=== PATIENT | female | born 1985 | race Caucasian/White ===

== ENCOUNTER 2017-10-05 01:09 | Emergency (ER) | payer SELFPAY ==
[~2017-10-05] VITALS: Ht 152.4 cm; Wt 85.0 kg
[2017-10-05] MEDS: ONDANSETRON HCL 4MG/2ML VIAL IV STA (06:17)
[2017-10-05] MEDS ORDERED: MORPHINE SULFATE 4 MG/ML CPJ (NOT FOR IM USE) IV STA (06:17)
[2017-10-05] MEDS: SODIUM CHLORIDE 0.9% 1,000 ML IV ONE (06:25)
[2017-10-05 06:37] LABS: EOSINOPHILS % 0.9 % (0.0-5.0); HEMATOCRIT. 39.6 % (36.0-48.0); HEMOGLOBIN. 13.2 g/dL (12.0-16.0); LYMPHOCYTES % 17.4 % (20.0-50.0); MEAN CORPUSCULAR HEMOGLOBIN 25.7 pg (28.0-32.0); MEAN CORPUSCULAR VOLUME 77.3 fL (81.0-99.0); MEAN PLATELET VOLUME 8.4 fl (7.4-10.4); MONOCYTES % 4.8 % (2.0-8.0); NEUTROPHILS % 75.9 % (40.0-76.0); PLATELET 374 x1000/uL (130-400); RED BLOOD CELL COUNT 5.13 mill/uL (4.2-5.4)
[2017-10-05 06:49] LABS: PROTHROMBIN TIME 10.8 sec (9.4-11.6)
[2017-10-05 07:09] LABS: CARBON DIOXIDE 29 mEq/L (21-32)
[2017-10-05 07:21] LABS: CHLORIDE 104 mEq/L (98-107)
[2017-10-05] MEDS: MORPHINE SULFATE 10 MG/ML CPJ IV STA (08:23)
[2017-10-05 09:14] LABS: CLARITY URINE CLEAR (CLEAR); COLOR URINE YELLOW (YELLOW); GLUCOSE URINE NEGATIVE (NEGATIVE); KETONES URINE NEGATIVE (NEGATIVE); LEUKOCYTE ESTERASE URINE NEGATIVE (NEGATIVE); NITRITE URINE NEGATIVE (NEGATIVE); OCCULT BLOOD URINE NEGATIVE (NEGATIVE); PROTEIN URINE TRACE (NEGATIVE); SPECIFIC GRAVITY URINE 1.024 (1.005-1.030); UROBILINOGEN URINE 0.2 E.U./dL (0.2-1.0)
[2017-10-05 10:25] VITALS: BP 133/79
[2017-10-05] MEDS: HYDROCODONE/ACETAMINOPHEN 5/325MG TABLET PO ONE (10:25)
== END 2017-10-05 10:26 | disposition home or self-care (01) ==
LOC: ER 01:09
DX: K80.20 Calculus of gallbladder without cholecystitis without obstruction (principal)
CPT/HCPCS: 36415; 76705; 80053; 81001; 83690; 85025; 85610; 96361; 96374; 96375; 99285; J2270; J2405; J7030; Z7610